=== PATIENT | female | born 1960 | race Caucasian/White ===

== ENCOUNTER 2017-02-04 17:17 | Emergency (ER) | payer BC ==
[~2017-02-04] VITALS: Ht 160 cm; Wt 94.9 kg
[~2017-02-04 17:17] MED LIST: CALTRATE 600 +1 EAC1 PO; CIPRO500 MG PO; DIGESTIVE PROB1 EACH PO; ERGOCALCIF50000 UNIT PO; FIBER LAXATIV0.52 GM PO; FLEXERIL10 MG PO; HYDROCHLOROTHIA25 MG PO; LEVOTHYROXINE50 MCG PO; PRINIVIL20 MG PO; VALIUM5 MG PO
[2017-02-04 18:18] LABS: HEMATOCRIT 41.3 % (36.0-46.0); MCH 29.2 PG (29.0-34.0); MCHC 33.7 G/DL (30.0-36.0); MCV 86.8 FL (83-99); MEAN PLAT.VOLUME 9.5 uM^3 (9.5-12.4); PLATELET COUNT 270 K/uL (156-360); RBC DIS.WIDTH-CV 12.8 % (11.8-14.6); RBC DIS.WIDTH-SD 40.8 % (39-53); RED BLOOD COUNT 4.76 M/uL (3.80-5.20)
[2017-02-04 18:24] LABS: ADD MIUA? YES; BILIRUBIN NEGATIVE; BLOOD NEGATIVE; COLOR YELLOW ((YELLOW)); GLUCOSE (STRIP) NEGATIVE; KETONES NEGATIVE; LEUKOCYTES SMALL; NITRITE NEGATIVE; PROTEIN (STRIP) NEGATIVE; SPECIFIC GRAVITY 1.011 (1.000-1.030); UROBILINOGEN 0.2 MG/DL (0.2-1.0)
[2017-02-04 18:31] LABS: CHLORIDE 103 mEq/L (99-109); POTASSIUM 3.8 mEq/L (3.7-5.4); SODIUM 141 mEq/L (136-147)
[2017-02-04 18:31] LABS: BACTERIA RARE /HPF; EPITHELIAL CELLS RARE /HPF; HYALINE CASTS 0-5 /LPF; MUCUS TRACE /LPF; RED BLOOD CELLS 0-5 /HPF (0-5)
[2017-02-04 18:33] LABS: GLUCOSE 110 mg/dL (70-99)
[2017-02-04 18:35] LABS: ANION GAP 12 MEQ/L (2-14); TOTAL BILIRUBIN 0.8 mg/dL (0.0-1.0)
[2017-02-04 18:37] LABS: ALKALINE PHOSPHATASE 81 IU/L (3-129); GFR ESTIMATE (CALCULATED) > 59 mL/min/
[2017-02-04 18:38] LABS: UREA NITROGEN (BUN) 17 mg/dL (9-23)
[2017-02-04 18:40] LABS: LIPASE 23 U/L (1.0-51.0)
[2017-02-04 19:15] VITALS: BP 141/84
[2017-02-04] MEDS ORDERED: ULTRAM50 MG PO (19:23)
== END 2017-02-04 19:24 | disposition home or self-care (01) ==
LOC: EME 17:17
PROVIDERS: Nurse Practitioner Family
DX: R09.1 Pleurisy (principal); K76.0 Fatty (change of) liver, not elsewhere classified; Z87.891 Personal history of nicotine dependence
CPT/HCPCS: 71020; 76705; 80053; 81003; 83690; 85027; 99281; 99284; J1885